=== PATIENT | female | born 1990 | race Two or more races ===

== ENCOUNTER 2018-12-18 11:14 | Emergency (ER) | payer MEDICAID ==
[~2018-12-18] VITALS: Ht 160 cm; Wt 88.9 kg
[2018-12-18 11:20] VITALS: BP 146/94
[2018-12-18] MEDS ORDERED: cefTRIAXone 1GM/50ML D5W 50 ML IV ONE (12:00)
[2018-12-18] MEDS ORDERED: methylPREDNISolone SOD SUCC 125 MG/2 ML VL IM ONE (12:00)
[2018-12-18] MEDS ORDERED: cefTRIAXone SOD 1,000 MG VL IM ONE (12:15)
== END 2018-12-18 12:38 | disposition home or self-care (01) ==
LOC: ER 11:18
DX: J03.90 Acute tonsillitis, unspecified (principal)
CPT/HCPCS: 96372; 99283; J0696; J2930

== ENCOUNTER 2019-02-21 08:09 | Emergency (ER) | payer MEDICAID ==
[~2019-02-21] VITALS: Ht 160 cm; Wt 90.3 kg
[2019-02-21 08:18] VITALS: BP 116/79
== END 2019-02-21 09:50 | disposition left against medical advice (07) ==
LOC: ER 08:19
DX: J02.9 Acute pharyngitis, unspecified (principal); R11.0 Nausea; Z53.21 Procedure and treatment not carried out due to patient leaving prior to being seen by health care provider

== ENCOUNTER 2019-07-04 16:07 | Emergency (ER) | payer MEDICAID ==
[~2019-07-04] VITALS: Ht 160 cm; Wt 82.6 kg
[2019-07-04] MEDS ORDERED: DexAMETHasone SOD PHOS 10MG/1ML VIAL INJ IM ONE (19:00)
[2019-07-04] MEDS ORDERED: ACETAMINOPHEN/CODEINE#3 (300/30mg) TAB PO ONE (19:00)
[2019-07-04] MEDS ORDERED: cefTRIAXone SOD 1,000 MG VL IM ONE (19:00)
[2019-07-04 19:36] VITALS: BP 119/80
== END 2019-07-04 19:53 | disposition home or self-care (01) ==
LOC: ER 16:07
DX: J03.90 Acute tonsillitis, unspecified (principal)
CPT/HCPCS: 96372; 99283; J0696; J1100